=== PATIENT | female | born 1970 | race Caucasian/White ===

== ENCOUNTER → 2017-09-15 | Outpatient (REF) | payer OTHER | LOC: M SFHCLERA 13:49 | DX: J02.9 Acute pharyngitis, unspecified (principal) ==

== ENCOUNTER → 2017-09-15 | Outpatient (CLI) | payer OTHER | LOC: M LRY 14:05 | DX: J02.9 Acute pharyngitis, unspecified (principal) | CPT/HCPCS: 71046 ==

== ENCOUNTER → 2018-05-18 | Outpatient (REF) | payer OTHER | LOC: M LAB LCGH 09:21 | PROVIDERS: ATTEND Nurse Practitioner Adult Health | DX: Z12.4 Encounter for screening for malignant neoplasm of cervix (principal) ==

== ENCOUNTER → 2018-08-26 | Outpatient (CLI) | payer BC, OTHER ==
[2018-08-26 14:38] LABS: BASO % 0.3 % (0.0-1.0); EOS # 0.2 10^3/uL (0.0-0.50); EOS % 2.2 % (0.0-3.0); HEMATOCRIT 42.6 % (36.0-47.0); LYMPH # 2.5 10^3/uL (1.5-4.5); LYMPH % 32.2 % (24.0-44.0); MEAN CORPUSCULAR HEMOGLOBIN 28.7 pg (27.0-33.0); MEAN CORPUSCULAR HGB CONC 32.9 g/dl (32.0-36.5); MEAN CORPUSCULAR VOLUME 87.5 fl (80.0-96.0); MONO # 0.6 10^3/uL (0.0-0.8); MONO % 7.9 % (0.0-5.0); NEUTROPHILS # 4.5 10^3/uL (1.8-7.7); NEUTROPHILS % 57.1 % (36.0-66.0); PLATELET COUNT, AUTOMATED 289 10^3/uL (150-450); RED BLOOD COUNT 4.87 10^6/uL (4.00-5.40); WHITE BLOOD COUNT 7.8 10^3/uL (4.0-10.0)
[2018-08-26 14:47] LABS: INR 0.99; PROTHROMBIN TIME 12.8 SECONDS (11.8-14.0)
[2018-08-26 14:48] LABS: PARTIAL THROMBOPLASTIN TIME 31.7 SECONDS (25.0-38.4)
[2018-08-26 14:50] LABS: D-DIMER QUANT 589.74 ng/ml (<500)
--- NOTE | 2018-08-26 14:50 | REP ---
Left lower extremity deep vein duplex ultrasound: The deep veins demonstrate normal compression, normal Doppler color flow and normal Doppler waveforms with respiration and augmentation from the popliteal vein to the common femoral vein. There is a cyst in the left popliteal fossa medially measuring 4.1 x 1.2 x 2.1 cm, likely a Pineda's cyst. Impression: There is no left lower extremity deep vein thrombus. There is a popliteal fossa cyst, likely a Pineda's cyst. Electronically Signed by Trip Alvarado MD 08/26/2018 02:41 P
--- NOTE | 2018-08-26 14:58 | REP ---
68 series: Five views. History: Acute pain in the left knee. Findings: Five views of the left knee demonstrate mild medial compartment osteoarthritic spurring. There is patellofemoral compartment narrowing and spur formation as well moderate in degree. Fullness in the suprapatellar bursa suggestive joint effusion. No fractures seen. No erosive changes seen. Impression: Medial and patellofemoral compartment osteoarthritis. Probable joint effusion. No acute bony abnormality. Electronically Signed by Edward Guadarrama MD 08/26/2018 02:50 P
[2018-08-26 15:08] LABS: ALBUMIN 4.2 GM/DL (3.2-5.2); ALT/SGPT 43 U/L (12-78); BILIRUBIN,TOTAL 0.2 MG/DL (0.2-1.0); BLOOD UREA NITROGEN 16 MG/DL (7-18); CALCIUM LEVEL 9.2 MG/DL (8.5-10.1); CARBON DIOXIDE LEVEL 30 MEQ/L (21-32); CHLORIDE LEVEL 105 MEQ/L (98-107); CREATININE FOR GFR 1.03 MG/DL (0.55-1.30); GLOMERULAR FILTRATION RATE > 60.0 (>51); GLUCOSE, FASTING 82 MG/DL (70-100); POTASSIUM SERUM 3.2 MEQ/L (3.5-5.1); SODIUM LEVEL 141 MEQ/L (136-145); TOTAL PROTEIN 7.8 GM/DL (6.4-8.2)
== END ==
LOC: M LAB 13:12
PROVIDERS: ATTEND Nurse Practitioner Family
DX: M17.12 Unilateral primary osteoarthritis, left knee (principal); M79.605 Pain in left leg; M25.562 Pain in left knee